=== PATIENT | female | born 1995 | race Caucasian/White ===

== ENCOUNTER 2017-09-22 10:46 | Emergency (ER) | payer BC ==
[2017-09-22 11:05] VITALS: BP 103/65
--- NOTE | 2017-09-22 11:27 | UC ---
Throat Pain/Nasal Sky HPI - HPI Summary HPI Summary: 22 yo WF p/w B/L tonsillits x 3 days associated with recent f/c/bodyaches x 1 day. Went to [facility] received a course of PO abx (can' t recall name) but throat pain is worsening and feels weaker, No URI sx - History of Current Complaint Chief Complaint: UCGeneralIllness Stated Complaint: SORE THROAT EAR PLUGGED CHILLS Time Seen by Provider: 09/22/17 11:01 Hx Obtained From: Patient Hx Last Menstrual Period: 09/19/17 Onset/Duration: Sudden Onset, Gradual Onset, Lasting Days Severity: Moderate Pain Intensity: 7 Associated Signs & Symptoms: Positive: Negative - Epiglottits Risk Factors Epiglottis Risk Factors: Negative - Allergies/Home Medications Allergies/Adverse Reactions: Allergies Allergy/AdvReac Type Severity Reaction Status Date / Time No Known Allergies Allergy Verified 09/22/17 11:05 PMH/Surg Hx/FS Hx/Imm Hx Previously Healthy: Yes - Surgical History Surgical History: None - Family History Known Family History: Negative: Respiratory Disease - Social History Alcohol Use: Weekly Substance Use Type: None Smoking Status (MU): Never Smoked Tobacco Review of Systems Constitutional: Fever, Chills, Fatigue Skin: Negative Eyes: Negative ENT: Sore Throat Respiratory: Negative Cardiovascular: Negative Gastrointestinal: Negative Genitourinary: Negative Motor: Negative Neurovascular: Negative Musculoskeletal: Negative Neurological: Negative Psychological: Negative All Other Systems Reviewed And Are Negative: Yes Physical Exam Triage Information Reviewed: Yes Appearance: No Pain Distress Vital Signs: Initial Vital Signs Temp 36.6 C 09/22/17 11:02 Pulse 86 09/22/17 11:02 Resp 16 09/22/17 11:02 BP 103/65 09/22/17 11:02 Pulse Ox 100 09/22/17 11:02 Vital Signs Reviewed: Yes ENT: Positive: Hearing grossly normal, TMs normal, Tonsillar swelling, Tonsillar exudate Dental Exam: Normal Neck: Positive: Tenderness @ - B/L 3+ cervical LAD Cardiovascular Exam: Normal Cardiovascular: Positive: RRR Abdominal Exam: Normal Abdomen Description: Positive: Nontender Musculoskeletal Exam: Normal Neurological Exam: Normal Neurological: Positive: Alert Psychological Exam: Normal Skin Exam: Normal Throat Pain/Nasal Course/Dx - Course Course Of Treatment: rapid strep and rapid flu neg, current abx not working, Pt on PO Keflex, changed to Clindamycin 300 TID as pt's current Exudative tonsilllits is not responding to Keflex, sent out for throat c&S - Differential Dx/Diagnosis Differential Diagnosis/HQI/PQRI: Pharyngitis, Tonsillitis Provider Diagnoses: exudative tonsillits Discharge - Sign-Out/Discharge Documenting (check all that apply): Discharge/Admit/Transfer - Discharge Plan Condition: Stable Disposition: HOME Prescriptions: Clindamycin HCl 300 mg PO TID 10 Days #30 capsule Patient Education Materials: Tonsillitis (ED) [facility] [[facility] - - Billing Disposition and Condition Condition: STABLE Disposition: HOME
== END 2017-09-22 12:08 | disposition home or self-care (01) ==
LOC: UCEAST 10:46
DX: J03.90 Acute tonsillitis, unspecified (principal)
CPT/HCPCS: 87070; 87502; 87651; 99212; G0463